=== PATIENT | male | born 1980 | race African-American/Black ===

== ENCOUNTER 2016-06-25 15:26 | Emergency (ER) | payer MEDICAID ==
[~2016-06-25] VITALS: Ht 188 cm; Wt 97.2 kg
[2016-06-25] MEDS ORDERED: BACITRACIN ZINC OINT UDPKT TOP ONE (19:00)
[2016-06-25] MEDS ORDERED: HYDROCODONE/ACETAMINOPHEN 5/325MG TABLET PO ONE (19:00)
[2016-06-25] MEDS ORDERED: TETANUS, DIPHTHERIA, PERTUSSIS VAC/PF 0.5ML (>7YR OLD) IM ONE (19:00)
[2016-06-25] MEDS ORDERED: LIDOCAINE HCL 1% 20ML VIAL (Pyxis) INJ MC ONE (19:00)
[2016-06-25] MEDS ORDERED: CEFTRIAXONE SODIUM 1 G/VIAL IM ONE (21:45)
[2016-06-26 00:18] VITALS: BP 124/65
== END 2016-06-26 00:19 | disposition home or self-care (01) ==
LOC: ER 17:54
DX: S62.91XA Unspecified fracture of right hand, initial encounter for closed fracture (principal); S61.212A Laceration without foreign body of right middle finger without damage to nail, initial encounter; S61.214A Laceration without foreign body of right ring finger without damage to nail, initial encounter; Z91.041 Radiographic dye allergy status; Z91.013 Allergy to seafood; W50.3XXA Accidental bite by another person, initial encounter; Y93.89 Activity, other specified; Y92.89 Other specified places as the place of occurrence of the external cause; Y99.8 Other external cause status
CPT/HCPCS: 12002; 73130; 90471; 90715; 96372; 99284; J0696; J3490; Z7610

== ENCOUNTER 2017-10-11 13:34 | Emergency (ER) | payer MEDICAID ==
[~2017-10-11] VITALS: Ht 188 cm; Wt 99.2 kg
[2017-10-11] MEDS ORDERED: PREDNISONE 20MG TABLET PO STA (15:13)
[2017-10-11] MEDS ORDERED: IPRATROPIUM/ALBUTEROL 0.5-3(2.5)MG/3ML NEB HHN ONE (15:15)
[2017-10-11] MEDS ORDERED: LEVOFLOXACIN 500MG TABLET PO ONE (15:15)
[2017-10-11] MEDS ORDERED: IPRATROPIUM BROMIDE (0.02%) 0.5MG/2.5ML NEB ONE (17:28)
[2017-10-11] MEDS ORDERED: ALBUTEROL (0.5%) 2.5MG/0.5ML NEB HHN ONE (17:28)
[2017-10-11 17:45] VITALS: BP 137/68
== END 2017-10-11 18:01 | disposition home or self-care (01) ==
LOC: ER 15:37
DX: J18.9 Pneumonia, unspecified organism (principal); J45.909 Unspecified asthma, uncomplicated; F12.10 Cannabis abuse, uncomplicated; G43.909 Migraine, unspecified, not intractable, without status migrainosus; Z91.013 Allergy to seafood; Z91.048 Other nonmedicinal substance allergy status
CPT/HCPCS: 71045; 94640; 99284; J7512; J7611; 99283; J7620

== ENCOUNTER 2017-10-26 11:37 | Emergency (ER) | payer MEDICAID ==
[~2017-10-26] VITALS: Ht 185.4 cm; Wt 99.7 kg
[2017-10-26] MEDS ORDERED: ALBUTEROL (0.083%) 2.5MG/3ML NEB HHN STA (12:56)
[2017-10-26 13:53] VITALS: BP 134/53
== END 2017-10-26 14:10 | disposition home or self-care (01) ==
LOC: ER 11:37
DX: R05 Cough (principal); G43.909 Migraine, unspecified, not intractable, without status migrainosus; F12.10 Cannabis abuse, uncomplicated; Z91.041 Radiographic dye allergy status; Z91.013 Allergy to seafood
CPT/HCPCS: 71045; 94640; 99283; J7611